=== PATIENT | female | born 1940 | race Caucasian/White ===

== ENCOUNTER 2023-03-06 06:36 | Emergency (ER) | payer MEDICARE, OTHER ==
[2023-03-06 06:44] VITALS: TEMP 97.6
[2023-03-06] MEDS ORDERED: MORPHINE SULFATE 4 MG INJ IV ONE (07:27)
[2023-03-06] MEDS ORDERED: Zofran 4 MG/2 ML VIAL IV ONE (07:28)
[2023-03-06] MEDS ORDERED: Sodium Chloride 0.9% 1000 ML 1,000 ML IV SCH (07:30)
[2023-03-06] MEDS ORDERED: Zofran 4 MG/2 ML VIAL ONE (07:38)
[2023-03-06] MEDS ORDERED: Sodium Chloride 0.9% 1000 ML 1,000 ML ONE (07:38)
[2023-03-06] MEDS ORDERED: MORPHINE SULFATE 4 MG INJ ONE (07:38)
[2023-03-06 07:41] LABS: Absolute Neutrophil Ct (ANC) 5.96 x10^3/uL (1.4-6.9); BASOPHIL % 0.7 % (0.0-0.4); Basophil (Absolute #) 0.06 x10^3/uL (0-0.4); Eosinophil % 0.5 % (0.00-5.0); Eosinophil (Absolute #) 0.04 x10^3/uL (0-0.5); Hematocrit 40.1 % (35-47); Hemoglobin 13.1 g/dL (12.0-16.0); IMMATURE GRAN # 0.02 x10^3u/L (0.00-0.03); IMMATURE GRAN % 0.2 % (0.00-0.4); Lymphocyte (Absolute #) 1.47 x10^3/uL (1.0-4.6); Lymphocytes % 18.1 % (24.0-44.0); Mean Cell Volume 90.3 fL (78-100); Mean Corpuscular Hemoglobin 29.5 pg (26-32); Mean Corpuscular Hgb Concent. 32.7 g/dL (32-36); Mean Platelet Volume 9.9 fL (7.5-11.0); Monocyte (Absolute #) 0.55 x10^3/uL (0.0-1.3); Monocytes % 6.8 % (0.0-12.0); Neutrophil % 73.7 % (36.0-66.0); Platelet Count 294 x10^3/uL (150-450); Red Blood Count 4.44 x10^6/uL (4.1-5.4); Red Cell Distribution Width 13.9 % (11.5-14.0); White Blood Count 8.1 x10^3/uL (4.0-10.5)
[2023-03-06 07:57] LABS: ALBUMIN 4.3 g/dL (3.5-5.0); ANION GAP 16.1 MEQ/L (5-15); BILIRUBIN,TOTAL 0.8 mg/dL (0.2-1.3); Calcium 9.3 mg/dL (8.4-10.2); Creatinine 1 0.96 mg/dL (0.52-1.04); EST GLOMERULAR FILTRATION RATE 59.4 ML/MIN; Potassium 3.9 mmol/L (3.5-5.1); Total Protein 7.7 g/dL (6.3-8.2)
--- NOTE | 2023-03-06 08:27 | ERPHSYRPT ---
- History of Present Illness Time Seen by Provider: 03/06/23 08:23 Source: patient Exam Limitations: no limitations Patient Subjective Stated Complaint: back pain Triage Nursing Assessment: pt brought back to ER in wheelchair by Benny Barney RN. Pt c/o low back pain to left side that is shooting down the left side to the hip area. Pt has had back pain for a few months but went to see her family dr for it last week. The pain was much worse today with the shooting pain new today. Pt states "the pain is worse when I first get up in the morning, but today it just wouldn't stop". Physician History: Patient is an 82-year-old female presents to our ED for evaluation of acute on chronic low back pain. 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 She does not know if it is thoracic or abdominal. Patient believes its thoracic but is not sure. Patient states that she is scheduled to have surgery on this aneurysm. Patient's back pain has gotten progressively worse over the past couple days. Pain tends to radiate towards her left hip. No recent trauma. No fever. No nausea vomiting or diaphoresis. Symptoms are progressive. Symptoms are moderate in intensity. No specific worsening or improving factors. at bedside. They voiced no other complaints or concerns at this time. Portions of this note were created with voice recognition technology. There may be grammatical, spelling, punctuation or sound alike errors Timing/Duration: day(s) (3 days) Method of Injury: unknown Quality: dull Back Pain Location: lumbar spine Severity of Pain-Max: moderate Severity of Pain-Current: mild Modifying Factors: Improves With: nothing Associated Symptoms: denies symptoms Previous symptoms: other (Somewhat different from previous according to patient) Allergies/Adverse Reactions: [id number] Reductase Inhibitor Adverse Reaction (Intermediate, Verified 03/06/23 06:53) Joint Aches Home Medications: Aspirin EC 81 mg [Ecotrin 81 mg] 1 tab PO DAILY 03/06/23 [History] Cyclobenzaprine HCl 10 mg [Cyclobenzaprine 10 MG] 1 tab PO HS 03/06/23 [History] Diclofenac Sodium 1 tab PO BID 03/06/23 [History] Levothyroxine Sodium 50 Mcg [Synthroid 50 Mcg] 1 tab PO DAILY 03/06/23 [History] Metoprolol Succinate 25 mg Xl* [Toprol-Xl 25MG Tablets] 1 tab PO DAILY 03/06/23 [History] PANTOPRAZOLE 40 mg Tablet [Protonix 40MG Tablet] 1 tab PO DAILY 03/06/23 [History] Rosuvastatin Calcium 10 mg PO DAILY 03/06/23 [History] Hx Tetanus, Diphtheria Vaccination/Date Given: No Hx Influenza Vaccination/Date Given: Yes Hx Pneumococcal Vaccination/Date Given: Yes Immunizations Up to Date: No Travel Risk - International Travel Have you traveled outside of the country in past 3 weeks: No - Coronavirus Screening Are you exhibiting any of the following symptoms?: No Close contact with a COVID-19 positive Pt in past 14-21 Days: No - Vaccine Status Have you recieved a Covid-19 vaccination: Yes Co Founder: [employer] - Vaccination Dates Date of 2cond Vaccination (if applicable): . - Review of Systems Constitutional: No Symptoms, No Fever, No Chills Eyes: No Symptoms Ears, Nose, & Throat: No Symptoms Respiratory: No Symptoms, No Cough, No Dyspnea Cardiac: No Symptoms, No Chest Pain, No Edema, No Syncope Abdominal/Gastrointestinal: No Symptoms, No Abdominal Pain, No Nausea, No Vomiting, No Diarrhea Genitourinary Symptoms: No Symptoms, No Dysuria Musculoskeletal: No Symptoms, No Back Pain, No Neck Pain Skin: No Symptoms, No Rash Neurological: No Symptoms, No Dizziness, No Focal Weakness, No Sensory Changes Psychological: No Symptoms Endocrine: No Symptoms Hematologic/Lymphatic: No Symptoms Immunological/Allergic: No Symptoms All Other Systems: Reviewed and Negative - Past Medical History Pertinent Past Medical History: Yes Neurological History: No Pertinent History ENT History: No Pertinent History Cardiac History: High Cholesterol, Hypertension, Other Respiratory History: No Pertinent History Endocrine Medical History: No Pertinent History Musculoskeletal History: Osteoarthritis GI Medical History: GERD History: No Pertinent History Psycho-Social History: No Pertinent History Female Reproductive Disorders: No Pertinent History Other Medical History: AORTIC ANEURYSM WHICH IS MONITORED REGULARLY AND ALSO HAS A "LEAKY VALVE". - Past Surgical History Past Surgical History: Yes Neuro Surgical History: No Pertinent History Cardiac: No Pertinent History Respiratory: No Pertinent History Gastrointestinal: No Pertinent History Genitourinary: No Pertinent History Musculoskeletal: Joint Replacement Female Surgical History: No Pertinent History - Social History Smoking Status: Never smoker Exposure to second hand smoke: No Drug Use: none Patient Lives Alone: No - Nursing Vital Signs Nursing Vital Signs: Initial Vital Signs Temperature 97.6 F 03/06/23 06:43 Pulse Rate 64 03/06/23 06:43 Respiratory Rate 20 03/06/23 06:43 Blood Pressure 177/80 03/06/23 06:43 O2 Sat by Pulse Oximetry 100 03/06/23 06:43 Pain Scale Pain Intensity [Left Lower 10 Back] Pain Intensity 4 - Physical Exam General Appearance: no apparent distress, alert Eye Exam: PERRL/EOMI, eyes nml inspection Neck Exam: normal inspection, non-tender, supple, full range of motion, No meningismus, No midline tenderness Respiratory Exam: normal breath sounds, lungs clear, airway intact, No respiratory distress Cardiovascular Exam: regular rate/rhythm, normal heart sounds, normal peripheral pulses Gastrointestinal Exam: soft, normal bowel sounds, No tenderness, No mass Back Exam: normal inspection, normal range of motion Extremity Exam: normal inspection, normal range of motion, No calf tenderness, No pedal edema Peripheral Pulses: dorsalis-pedis (R): 2+, dorsalis-pedis (L): 2+ Neurologic Exam: alert, oriented x 3, cooperative, paver II-XII nml as tested, normal mood/affect, nml station & gait, sensation nml, No motor deficits Skin Exam: normal color, warm, dry, No rash Lymphatic Exam: No adenopathy SpO2 Interpretation: normal SpO2: 97 O2 Delivery: Room Air - Course Nursing assessment & vital signs reviewed: Yes EKG Interpreted by Me: RATE (59), Left [place] Deviation, NORMAL INTERVALS Ordered Tests: Active Orders 24 hr Category Date Time Status Professor Of Sociology STAT Care 03/06/23 07:24 Active EKG-ER Only STAT Care 03/06/23 07:24 Active IV Insertion STAT Care 03/06/23 07:24 Active Pulse Oximetry (ED) STAT Care 03/06/23 07:24 Active CTA ABD/PEL W AND/OR W/O CONTR [CT] Stat Exams 03/06/23 07:25 Completed CTA CHEST W AND/OR WO [CT] Stat Exams 03/06/23 07:25 Completed CBC W DIFF Stat Lab 03/06/23 07:35 Completed CMP Stat Lab 03/06/23 07:35 Completed CULTURE,URINE Stat Lab 03/06/23 07:52 Received TROPONIN Q4H Lab 03/06/23 07:35 Completed TROPONIN Q4H Lab 03/06/23 11:30 Ordered TROPONIN Q4H Lab 03/06/23 15:30 Ordered UA W/RFX UR CULTURE Stat Lab 03/06/23 07:52 Completed Medication Summary Discontinued Medications Generic Name Dose Route Start Last Admin Trade Name Adia PRN Reason Stop Dose Admin Dexamethasone Sodium Phosphate 6 mg 03/06/23 09:25 03/06/23 09:31 Dexamethasone Sod Phosphate 10 Mg/Ml IV 03/06/23 09:26 6 mg STAT ONE Administration Dexamethasone Sodium Phosphate Confirm 03/06/23 09:29 Dexamethasone Sod Phosphate 10 Mg/Ml Administered 03/06/23 09:30 Dose 10 mg .ROUTE .STK-MED ONE Sodium Chloride 1,000 mls @ 100 mls/hr 03/06/23 07:30 03/06/23 07:40 Sodium Chloride 0.9% 1000 Ml IV 04/05/23 07:29 100 mls/hr .Q10H MARI Administration Sodium Chloride Confirm 03/06/23 07:38 Sodium Chloride 0.9% 1000 Ml Administered 03/06/23 07:39 Dose 1,000 mls @ ud .ROUTE .STK-MED ONE Ketorolac Tromethamine 30 mg 03/06/23 09:26 03/06/23 09:31 Ketorolac Tromethamine 30 Mg/Ml Inj IV 03/06/23 09:27 30 mg STAT ONE Administration Ketorolac Tromethamine Confirm 03/06/23 09:29 Ketorolac Tromethamine 30 Mg/Ml Inj Administered 03/06/23 09:30 Dose 30 mg .ROUTE .STK-MED ONE Morphine Sulfate 4 mg 03/06/23 07:27 03/06/23 07:40 Morphine Sulfate 4 Mg/Ml Injection IV 03/06/23 07:28 4 mg STAT ONE Administration Morphine Sulfate Confirm 03/06/23 07:38 Morphine Sulfate 4 Mg/Ml Injection Administered 03/06/23 07:39 Dose 4 mg .ROUTE .STK-MED ONE Ondansetron HCl 4 mg 03/06/23 07:28 03/06/23 07:40 Ondansetron Hcl 4 Mg/2 Ml Vial IV 03/06/23 07:29 4 mg STAT ONE Administration Ondansetron HCl Confirm 03/06/23 07:38 Ondansetron Hcl 4 Mg/2 Ml Vial Administered 03/06/23 07:39 Dose 4 mg .ROUTE .K-MED ONE Lab/Rad Data: Laboratory Result Diagrams 03/06/23 07:35 03/06/23 07:35 Laboratory Results 03/06/23 03/06/23 03/06/23 Range/Units 07:52 07:35 07:35 WBC (4.0-10.5) x10^3/uL RBC (4.1-5.4) x10^6/uL Hgb (12.0-16.0) g/dL Hct (35-47) % MCV (78-100) fL MCH (26-32) pg MCHC (32-36) g/dL RDW (11.5-14.0) % Plt Count (150-450) x10^3/uL MPV (7.5-11.0) fL Gran % (36.0-66.0) % Immature Gran % (Auto) (0.00-0.4) % Nucleat RBC Rel Count (0.00-0.1) % Eos # (Auto) (0-0.5) x10^3/uL Immature Gran # (Auto) (0.00-0.03) x10^3u/L Absolute Lymphs (auto) (1.0-4.6) x10^3/uL Absolute Monos (auto) (0.0-1.3) x10^3/uL Absolute Nucleated RBC (0.00-0.01) x10^3u/L Lymphocytes % (24.0-44.0) % Monocytes % (0.0-12.0) % Eosinophils % (0.00-5.0) % Basophils % (0.0-0.4) % Absolute Granulocytes (1.4-6.9) x10^3/uL Basophils # (0-0.4) x10^3/uL Sodium (137-145) mmol/L Potassium (3.5-5.1) mmol/L Chloride (98-107) mmol/L Carbon Dioxide (22-30) mmol/L Anion Gap (5-15) MEQ/L BUN (7-17) mg/dL Creatinine (0.52-1.04) mg/dL Estimated GFR ML/MIN Glucose (74-106) mg/dL Calcium (8.4-10.2) mg/dL Total Bilirubin (0.2-1.3) mg/dL AST (14-36) U/L ALT (0-35) U/L Alkaline Phosphatase (38-126) U/L Troponin I < 0.012 (0.000-0.034) ng/mL Serum Total Protein (6.3-8.2) g/dL Albumin (3.5-5.0) g/dL Urine Color Yellow (Yellow) Urine Appearance Clear (Clear) Urine pH 8.5 A (4.6-8.0) Ur Specific [place] 1.010 (1.005-1.030) Urine Protein Negative (Negative) Urine Glucose (UA) Negative (Negative) mg/dL Urine Ketones Negative (Negative) Urine Blood Negative (Negative) Urine Nitrite Negative (Negative) Urine Bilirubin Negative (Negative) Urine Urobilinogen 0.2 (0.2) mg/dL Ur Leukocyte Esterase Small A (Negative) U Hyaline Cast (Auto) NONE SEEN (0-2) /LPF Urine Microscopic RBC 6-10 A (0-5) /HPF Urine Microscopic WBC 3-5 (0-5) /HPF Ur Epithelial Cells None Seen (None Seen) /HPF Urine Bacteria None Seen (None Seen) /HPF Urine Culture Reflexed YES (NO) ABO Group A Rh Factor POSITIVE Antibody Screen NEGATIVE (NEGATIVE) 03/06/23 03/06/23 Range/Units 07:35 07:35 WBC 8.1 (4.0-10.5) x10^3/uL RBC 4.44 (4.1-5.4) x10^6/uL Hgb 13.1 (12.0-16.0) g/dL Hct 40.1 (35-47) % MCV 90.3 (78-100) fL MCH 29.5 (26-32) pg MCHC 32.7 (32-36) g/dL RDW 13.9 (11.5-14.0) % Plt Count 294 (150-450) x10^3/uL MPV 9.9 (7.5-11.0) fL Gran % 73.7 H (36.0-66.0) % Immature Gran % (Auto) 0.2 (0.00-0.4) % Nucleat RBC Rel Count 0.0 (0.00-0.1) % Eos # (Auto) 0.04 (0-0.5) x10^3/uL Immature Gran # (Auto) 0.02 (0.00-0.03) x10^3u/L Absolute Lymphs (auto) 1.47 (1.0-4.6) x10^3/uL Absolute Monos (auto) 0.55 (0.0-1.3) x10^3/uL Absolute Nucleated RBC 0.00 (0.00-0.01) x10^3u/L Lymphocytes % 18.1 L (24.0-44.0) % Monocytes % 6.8 (0.0-12.0) % Eosinophils % 0.5 (0.00-5.0) % Basophils % 0.7 (0.0-0.4) % Absolute Granulocytes 5.96 (1.4-6.9) x10^3/uL Basophils # 0.06 (0-0.4) x10^3/uL Sodium 136 L (137-145) mmol/L Potassium 3.9 (3.5-5.1) mmol/L Chloride 102 (98-107) mmol/L Carbon Dioxide 22 (22-30) mmol/L Anion Gap 16.1 H (5-15) MEQ/L BUN 21 H (7-17) mg/dL Creatinine 0.96 (0.52-1.04) mg/dL Estimated GFR 59.4 ML/MIN Glucose 100 (74-106) mg/dL Calcium 9.3 (8.4-10.2) mg/dL Total Bilirubin 0.80 (0.2-1.3) mg/dL AST 27 (14-36) U/L ALT 21 (0-35) U/L Alkaline Phosphatase 89 (38-126) U/L Troponin I (0.000-0.034) ng/mL Serum Total Protein 7.7 (6.3-8.2) g/dL Albumin 4.3 (3.5-5.0) g/dL Urine Color (Yellow) Urine Appearance (Clear) Urine pH (4.6-8.0) Ur Specific [place] (1.005-1.030) Urine Protein (Negative) Urine Glucose (UA) (Negative) mg/dL Urine Ketones (Negative) Urine Blood (Negative) Urine Nitrite (Negative) Urine Bilirubin (Negative) Urine Urobilinogen (0.2) mg/dL Ur Leukocyte Esterase (Negative) U Hyaline Cast (Auto) (0-2) /LPF Urine Microscopic RBC (0-5) /HPF Urine Microscopic WBC (0-5) /HPF Ur Epithelial Cells (None Seen) /HPF Urine Bacteria (None Seen) /HPF Urine Culture Reflexed (NO) ABO Group Rh Factor Antibody Screen (NEGATIVE) - Progress Progress: improved Progress Note: Patient is an 82-year-old female presents to our ED with severe low back pain. Pain has been ongoing for 2 to 3 days. Physical exam reveals tenderness of the lumbar spine area. Patient reports history of aortic aneurysm but does not know whether it is thoracic or abdominal. In light of patient symptomology we decided to order CTA chest abdomen pelvis to assess for possible aortic dissection. EKG reveals normal sinus rhythm. CBC CMP essentially unremarkable. Troponin negative. Type and screen ordered as well in anticipation of possible surgery. UA ordered as well. CT chest abdomen pelvis negative for aortic dissection. Patient initially received IV fluids and morphine/Zofran for pain control/nausea and hydration. Pain improved but did not resolve. After CT abdomen pelvis patient received a dose of Decadron Toradol. Pain significantly improved. In light of the fact that there are no emergent causes of patient's low back pain patient discharged home. A prescription for Zofran for the patient's pharmacy. Patient resting comfortably. At time of discharge. at bedside. They voiced no other complaints or concerns at this time. Portions of this note were created with voice recognition technology. There may be grammatical, spelling, punctuation or sound alike errors Complexity of problems addressed is moderate, acute complicated No critical care time Complexity of data reviewed and analyzed is moderate. Test ordered test reviewed. Clinical correlation made between imaging forward laboratory test and H&P. Risk of complication and or risk of morbidity/mortality of patient management is high. Patient received IV controlled medication for pain. Patient discharged home. Vital stable. Patient agrees to follow-up with her primary care doctor within 48 hours for evaluation. Time spent to discharge patient approximately 15 minutes. Plan of care established for shared decision making. No social determinants of health present to be follow-up. at bedside. They voiced no other complaints or concerns at this time. Portions of this note were created with voice recognition technology. There may be grammatical, spelling, punctuation or sound alike errors 03/06/23 10:50 Counseled pt/family regarding: lab results, diagnosis, need for follow-up, rad results - Departure Departure Disposition: Home Clinical Impression: Low back pain, 5.4 cm ascending aortic aneurysm, Osteopenia, Hiatal hernia, Spine degenerative changes, Atherosclerosis, Diverticulosis, Liver cyst versus hemangioma, Calcified uterine fibroid, Dextroscoliosis of lumbar spine, Hip d egenerative changes, Left axis deviation Condition: Stable Critical Care Time: No Referrals: ROSE MARIE HUERTA MD [Primary Care Provider] - Follow up/PCP as directed Additional Instructions: Discharge/Care Plan KYLIE THOMPSON was seen on 03/06/23 in the Emergency Room. The patient was counseled regarding Diagnosis,Lab results, Imaging studies, need for follow up and when to return to the Emergency Room. Prescriptions given: Discharge Note I have spoken with the patient and/or caregivers. I have explained the patient's condition, diagnosis and treatment plan based on the information available to me at this time. I have answered the patient's and/or caregiver's questions and addressed any concerns. The patient and/or caregivers have as good understanding of the patient's diagnosis, condition and treatment plan as can be expected at this point. The vital signs have been stable. The patient's condition is stable and appropriate for discharge from the emergency department. The patient will pursue further outpatient evaluation with the primary care physician or other designated or consulting physician as outlined in the discharge instructions. The patient and/or caregivers are agreeable to this plan of care and follow-up instructions have been explained in detail. The patient and/or caregivers have received these instruction. The patient/and or caregivers are aware that any significant change in condition or worsening of symptoms should prompt an immediate return to this or the closest emergency department or call 911. Prescriptions: Ketorolac Trometh 10 mg Tab [TORAdol 10 MG TABLET] 10 mg PO TID 5 Days #15 tablet
--- NOTE | 2023-03-06 08:41 | XRAY ---
Indication: Mid and low back pain. Conventional contrast enhanced CTA chest performed using 100 cc Isovue 370 contrast. 2-D sagittal and coronal reformatted images obtained. Additional 3-D reformatted images obtained using a separate workstation. Comparison: None Minimal arteriosclerotic thoracic aorta. Prominent ascending aorta up to 5.4 cm diameter. Remaining thoracic aorta negative for aneurysm/dissection. Heart not enlarged. No pathologic mediastinal/hilar lymphadenopathy. Small hiatal hernia. Lungs demonstrates mild bilateral dependent atelectasis. No suspicious pulmonary mass/nodule, infiltrate, or effusion. Bony thorax intact with osteopenia and moderate degenerative changes throughout the spine. CTA abdomen/pelvis reported separately. Impression: 1. Minimally arteriosclerotic aorta with 5.4 cm ascending aortic aneurysm. 2. Incidental hiatal hernia, osteopenia, and multilevel degenerative spondylosis.
[2023-03-06 08:46] LABS: Appearance Clear (Clear); Bacteria None Seen /HPF (None Seen); Bilirubin Negative (Negative); Blood Negative (Negative); Epithelial Cells None Seen /HPF (None Seen); Glucose, Urine Negative (Negative); Hyaline Casts NONE SEEN /LPF (0-2); Ketones Negative (Negative); Leukocyte Esterase Small (Negative); Nitrite Negative (Negative); Ph 8.5 (4.6-8.0); Protein,Urine Dip Negative (Negative); Urobilinogen 0.2 mg/dL (0.2)
[2023-03-06 08:47] LABS: ADD URINE CULTURE? YES (NO)
--- NOTE | 2023-03-06 08:47 | XRAY ---
Indication: Mid and low back pain. Conventional contrast enhanced CTA abdomen/pelvis performed using 100 cc Isovue 370 contrast. 2-D sagittal and coronal reformatted images obtained. Additional 3-D reformatted images obtained using a separate workstation. Comparison: None CTA chest reported separately. The abdominal aorta is mildly arteriosclerotic without aneurysm/dissection. Widely patent branching celiac, superior mesenteric, and inferior mesenteric arteries. A single renal artery supplies each kidney with punctate calcification origin right main renal artery. Remaining renal arteries negative for critical stenosis, obstruction, or AV malformation. No pathologic retroperitoneal lymphadenopathy. Noncontrasted stomach and bowel loops appear nonobstructed. Mild diffuse scattered colonic fecal debris throughout and scattered sigmoid diverticulosis. Liver demonstrates several small hypodense lesions largest right lobe measuring 1.9 cm, cysts versus hemangiomas. Uterus demonstrates 1.9 cm calcified fundal fibroid. Remaining gallbladder, pancreas, spleen, adrenal glands, kidneys, ureters, and bladder are unremarkable. Osseous structures intact with osteopenia, moderate degenerative changes throughout the visualized spine, minimal dextroscoliosis centered at L2, and mild degenerative changes both hips. Impression: 1. Mildly arteriosclerotic abdominal aorta. Negative for AAA/dissection. 2. Mild diffuse fecal stasis and sigmoid diverticulosis. 3. Incidental hepatic cysts versus hemangiomas, calcified uterine fibroid, and chronic bony findings.
[2023-03-06 09:12] LABS: ABO TYPING A; Antibody Screen NEGATIVE (NEGATIVE); RH TYPING POSITIVE
[2023-03-06] MEDS ORDERED: DECADRON 10MG INJ. IV ONE (09:25)
[2023-03-06] MEDS ORDERED: TORAdol 30 mg Injection IV ONE (09:26)
[2023-03-06] MEDS ORDERED: TORAdol 30 mg Injection ONE (09:29)
[2023-03-06] MEDS ORDERED: DECADRON 10MG INJ. ONE (09:29)
[2023-03-06 10:13] VITALS: BP 133/63; PULSE 59; RESP 14
[2023-03-06 10:46] VITALS: O2SAT 97
== END 2023-03-06 10:44 | disposition home or self-care (01) ==
LOC: ED 06:36
DX: M54.50 Low back pain, unspecified (principal); I71.21 Aneurysm of the ascending aorta, without rupture; M85.80 Other specified disorders of bone density and structure, unspecified site; K44.9 Diaphragmatic hernia without obstruction or gangrene; M51.36 Other intervertebral disc degeneration, lumbar region; M51.35 Other intervertebral disc degeneration, thoracolumbar region; M51.37 Other intervertebral disc degeneration, lumbosacral region; I70.90 Unspecified atherosclerosis; K57.90 Diverticulosis of intestine, part unspecified, without perforation or abscess without bleeding; R93.2 Abnormal findings on diagnostic imaging of liver and biliary tract; D25.9 Leiomyoma of uterus, unspecified; M41.9 Scoliosis, unspecified; M16.10 Unilateral primary osteoarthritis, unspecified hip; R94.31 Abnormal electrocardiogram [ECG] [EKG]; E78.5 Hyperlipidemia, unspecified; I10 Essential (primary) hypertension; Z79.899 Other long term (current) drug therapy
CPT/HCPCS: 36000; 36415; 71275; 74174; 80053; 81001; 84484; 85025; 86850; 86900; 86901; 87086; 93005; 93041; 94760; 96374; 96375; 99284; J1100; J1885; J2270; J2405